=== PATIENT | male | born 1965 | race American Indian/Alaskan Native ===

== ENCOUNTER 2017-01-06 08:16 | Outpatient (CLI) | payer OTHER ==
--- NOTE | 2017-01-06 13:38 | Fluoroscopy Report ---
Double contrast upper GI series and small bowel follow-through: Pain, microcytic anemia. The esophageal and gastric anatomy are unremarkable. There is good anatomical distention and good coating of the mucosa. There is no hernia and no reflux. Barium was followed through the small bowel reaching the colon between 2 and 2-1/2 hours. There no anatomic abnormalities identified. The terminal ileum is unremarkable. Impressions: Normal exam.
== END 2017-01-06 08:17 | disposition home or self-care (01) ==
LOC: FLUORO 08:16
PROVIDERS: ATTEND Internal Medicine
DX: D50.9 Iron deficiency anemia, unspecified (principal)
CPT/HCPCS: 74249